=== PATIENT | female | born 1965 ===

== ENCOUNTER 2018-12-15 06:21 | Outpatient (CLI) | payer OTHER ==
[~2018-12-15 06:21] MED LIST: LEVAQUIN500 MG PO; LISINOPRIL-HCTZ1 TA3; LISINOPRIL10 MG; NORVASC10 MG; ZOCOR20 MG PO
== END 2018-12-15 06:28 | disposition home or self-care (01) ==
LOC: LAB 06:21
DX: E78.49 Other hyperlipidemia (principal); Z00.00 Encounter for general adult medical examination without abnormal findings; R42 Dizziness and giddiness; M54.89 Other dorsalgia